=== PATIENT | male | born 1965 | race African-American/Black ===

== ENCOUNTER 2018-02-18 20:33 | Emergency (ER) | payer OTHER ==
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
[2018-02-18 20:40] VITALS: BP 171/100; PULSE 118; TEMP 98; BMI 27.6
--- NOTE | 2018-02-18 20:52 | PDOC ---
Attending Attestation - HPI HPI: 02/18/18 23:21 The patient is a 53-year-old male with past medical history significant for HTN , HLD, asthma and spinal stenosis was brought to the ER by EMS intoxicated. The patient reports following work, the patient had several beers and smoked some marijuana then fell asleep. Denies trauma, LOC, pain, vision changes, numbness, tingling or loss of sensation. The patient is ambulating with a steady gait. Allergies: NKA PCP: Sobeida reported - Physicial Exam PE: 02/18/18 23:30 Agree with resident. - Medical Decision Making 02/18/18 23:21 Documentation prepared by Catherine Kim, acting as esthetician and manager medical spa for Jennifer Bryant MD. <Catherine Kim - Last Filed: 02/18/18 23:30> - Resident Resident Name: Howard Navarro - ED Attending Attestation I have performed the following: I have examined & evaluated the patient, The case was reviewed & discussed with the resident, I agree w/resident's findings & plan - Medical Decision Making 02/18/18 22:47 CBC normal; chem pending. 02/25/18 20:41 Pt found down outside. He is a polysubstance user. He is alert and awake, but the circumstances of his being on the ground cannot be confirmed, as well as the fact that his BP on arrival is high, so pt was sent for CT head and s spine. 02/25/18 20:43 CT scans normal; labs normal. Pt refusing detox and he eloped from the ER. 02/25/18 20:44 No repeat vitals documented in the ER; however EKG reveals that his HR was 63 during his stay. <Jennifer Bryant - Last Filed: 02/25/18 20:44>
[2018-02-18 22:21] LABS: HEMATOCRIT 40.9 % (35.4-49); HEMOGLOBIN 13.3 GM/dL (11.7-16.9); MCH 26.7 pg (25.7-33.7); MCHC 32.5 g/dl (32.0-35.9); MEAN CELL VOLUME 82.2 fl (80-96); PLATELET COUNT 321 K/MM3 (134-434); RBC 4.98 M/mm3 (4.00-5.60); RDW 13.9 % (11.9-15.9); WHITE BLOOD COUNT 5.9 K/mm3 (4.0-10.0)
[2018-02-18 22:53] LABS: ALBUMIN 3.6 g/dl (3.4-5.0); ALK PHOS 76 U/L (45-117); ANION GAP 7 MMOL/L (8-16); BILIRUBIN,TOTAL 0.4 mg/dL (0.2-1); BLOOD UREA NITROGEN 15 mg/dL (7-18); CALCIUM 8.7 mg/dL (8.5-10.1); CHLORIDE 106 mmol/L (98-107); CO2 26 mmol/L (21-32); CREATININE 1.1 mg/dL (0.55-1.3); GLUCOSE,RANDOM 89 mg/dL (74-106); MAGNESIUM 2.4 mg/dL (1.8-2.4); POTASSIUM 4.4 mmol/L (3.5-5.1); SGOT/AST 21 U/L (15-37); SGPT/ALT 25 U/L (13-61); SODIUM 138 mmol/L (136-145); TOT PROT 7.5 g/dl (6.4-8.2)
--- NOTE | 2018-02-18 22:58 | PDOC ---
History of Present Illness - General Chief Complaint: Injury Stated Complaint: INTOX Time Seen by Provider: 02/18/18 20:35 History Source: Patient Exam Limitations: No Limitations - History of Present Illness Initial Comments: 02/18/18 22:53 Patient is a 53M with history of alcohol abuse and HTN here today after being found down by EMS. Patient states that he was tired after work, smoked some marijuana and drank some beer, then fell asleep outside. He denies any trauma. He denies headache, neck pain, fever, chills, cough, shortness of breath, and chest pain. He denies pain in his abdomen, legs, hips. Denies opiate use. Denies leg pain. Past History - Past Medical History Allergies/Adverse Reactions: Allergies Allergy/AdvReac Type Severity Reaction Status Date / Time No Known Allergies Allergy Verified 02/18/18 20:40 COPD: No CHF: No HTN: Yes - Suicide/Smoking/Psychosocial Hx Smoking History: Current every day smoker Number of Cigarettes Smoked Daily: 20 Information on smoking cessation initiated: No Review of Systems - Review of Systems Comments:: 02/18/18 22:58 GENERAL/CONSTITUTIONAL: No fever or chills. No weakness. HEAD, EYES, EARS, NOSE AND THROAT: No change in vision. No ear pain or discharge. No sore throat. CARDIOVASCULAR: No chest pain or shortness of breath RESPIRATORY: No cough, wheezing, or hemoptysis. GASTROINTESTINAL: No nausea, vomiting, diarrhea or constipation. GENITOURINARY: No dysuria, frequency, or change in urination. MUSCULOSKELETAL: No joint or muscle swelling or pain. No neck or back pain. SKIN: No rash NEUROLOGIC: No headache, vertigo, loss of consciousness, or change in strength/ sensation. ENDOCRINE: No increased thirst. No abnormal weight change HEMATOLOGIC/LYMPHATIC: No anemia, easy bleeding, or history of blood clots. ALLERGIC/IMMUNOLOGIC: No hives or skin allergy. *Physical Exam - Vital Signs Last Vital Signs Temp Pulse Resp BP Pulse Ox 98 F 118 H 18 171/100 H 98 02/18/18 20:35 02/18/18 20:35 02/18/18 20:35 02/18/18 20:35 02/18/18 20:35 - Physical Exam Comments: 02/18/18 22:59 GENERAL: Awake, alert, and fully oriented, in no acute distress HEAD: No signs of trauma, normocephalic, atraumatic EYES: PERRLA, EOMI, sclera anicteric, conjunctiva clear ENT: Auricles normal inspection, hearing grossly normal, nares patent, oropharynx clear without exudates. Moist mucosa NECK: Normal ROM, supple, no lymphadenopathy, JVD, or masses, no midline tenderness BACK: No midline tenderness, no signs of trauma LUNGS: No distress, speaks full sentences, clear to auscultation bilaterally HEART: Regular rate and rhythm, normal S1 and S2, no murmurs, rubs or gallops, peripheral pulses normal and equal bilaterally. ABDOMEN: Soft, nontender, normoactive bowel sounds. No guarding, no rebound. No masses. No signs of trauma. EXTREMITIES: Normal inspection, Normal range of motion, no edema. No clubbing or cyanosis. NEUROLOGICAL: Cranial nerves II through XII grossly intact. Normal speech, normal gait, no focal sensorimotor deficits SKIN: Warm, Dry, normal turgor, no rashes or lesions noted. ED Treatment Course - LABORATORY CBC & Chemistry Diagram: 02/18/18 22:14 02/18/18 22:14 - ADDITIONAL ORDERS Additional order review: Laboratory Results 02/18/18 02/18/18 22:14 22:14 Sodium 138 Potassium 4.4 Chloride 106 Carbon Dioxide 26 Anion Gap 7 L BUN 15 Creatinine 1.1 Creat Clearance w eGFR > 60 Random Glucose 89 Calcium 8.7 Magnesium 2.4 Total Bilirubin 0.4 AST 21 ALT 25 Alkaline Phosphatase 76 Creatine Kinase 231 Troponin I < 0.02 Total Protein 7.5 Albumin 3.6 02/18/18 22:14 RBC 4.98 MCV 82.2 MCHC 32.5 RDW 13.9 MPV 8.0 - RADIOLOGY Radiology Studies Ordered: Category Date Time Status CHEST PA & LAT [RAD] Stat Radiology 02/18/18 21:34 Ordered Medical Decision Making - Medical Decision Making 02/18/18 22:59 Patient is 53M with history of spinal stenosis, asthma, HTN, HLD here today after being found down. Vitals normal and stable. Patient denies trauma, denies pain. Patient is fully alert and oriented, walks with steady gait, no slurred speech. DDx includes, but is not limited to: alcohol intox, opiate intox, syncope. Will workup with cbc, cmp, trop, ekg, cxr. Head and cervical spine ct ordered in triage. EKG shows normal sinus rhythm with rate of 63. No st elevations/depressions. No significant t wave abnormalities. Normal axis. Normal intervals. CBC, CMP normal. Head/Cervical spine CT normal. Patient reassessed, states that he still feels fine. Given option to go to rehab , refuses. Still walking with steady gait. Will discharge with return precautions. Patient eloped before attending evaluation. *DC/Admit/Observation/Transfer Diagnosis at time of Disposition: Intoxication - Discharge Dispostion Disposition: ELOPED Condition at time of disposition: Good Decision to Admit order: No - Referrals - Patient Instructions Printed Discharge Instructions: DI for Alcohol Abuse Additional Instructions: Please return if you have any new, worsening or concerning symptoms, especially chest pain, shortness of breath, and shaking of your hands. Please reconsider drinking, it's harming your health. - Post Discharge Activity
--- NOTE | 2018-02-19 16:59 | EKG ---
Test Reason : Blood Pressure : / mmHG Vent. Rate : 063 BPM Atrial Rate : 063 BPM P-R Int : 172 ms QRS Dur : 088 ms QT Int : 400 ms P-R-T Axes : 052 010 029 degrees QTc Int : 409 ms NORMAL SINUS RHYTHM NORMAL ECG NO PREVIOUS ECGS AVAILABLE Confirmed by GOLDEN PARMAR, AGUEDA ([id number]) on 02/19/2018 4:58:54 PM Referred By: Confirmed By:AGUEDA FRANKS MD
== END 2018-02-18 23:55 | disposition home or self-care (01) ==
LOC: JER 20:33
DX: F10.120 Alcohol abuse with intoxication, uncomplicated (principal); F12.10 Cannabis abuse, uncomplicated; I10 Essential (primary) hypertension; M48.00 Spinal stenosis, site unspecified; J45.909 Unspecified asthma, uncomplicated; F17.210 Nicotine dependence, cigarettes, uncomplicated
CPT/HCPCS: 36415; 70450-TC; 72125-TC; 80053; 82550; 82553; 83735; 84484; 85027; 93005; 93010; 99281-25; 99282-25

== ENCOUNTER 2020-01-18 20:18 | Emergency (ER) | payer OTHER ==
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
[2020-01-18 20:42] VITALS: BP 144/82; PULSE 88; TEMP 98.1; BMI 28.5
[2020-01-18] MEDS ORDERED: ACETAMINOPHEN 500 MG TABLET (FP) PO ONE (20:49)
[2020-01-18] MEDS ORDERED: ACETAMINOPHEN 325 MG TABLET (FP) ONE (21:34)
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
[2020-01-18 22:26] LABS: URINE APPEARANCE CLEAR; URINE BILIRUBIN NEGATIVE (NEGATIVE); URINE COLOR YELLOW; URINE GLUCOSE (UA) NEGATIVE (NEGATIVE); URINE KETONE NEGATIVE (NEGATIVE); URINE LEUK ESTERASE NEGATIVE (NEGATIVE); URINE NITRITE NEGATIVE (NEGATIVE); URINE PROTEIN NEGATIVE (NEGATIVE); URINE UROBILINOGEN 0.2 mg/dL (0.2-1.0)
== END 2020-01-18 23:36 | disposition home or self-care (01) ==
LOC: JER 20:18
DX: M54.2 Cervicalgia (principal); M54.9 Dorsalgia, unspecified
CPT/HCPCS: 70450-TC; 72125-TC; 72128-TC; 81003; 87086; 99285-25